=== PATIENT | female | born 1970 | race Caucasian/White ===

== ENCOUNTER 2017-11-27 10:28 | Emergency (ER) | payer SELFPAY ==
[~2017-11-27] VITALS: Ht 165.1 cm; Wt 80.0 kg
[2017-11-27 10:28] VITALS: BP 143/76; PULSE 91; RESP 18; TEMP 98.2; O2SAT 98
[~2017-11-27 10:28] MED LIST: PRED10PA2 PO; TRAM50TA PO
[2017-11-27 11:23] LABS: BILIRUBIN, URINE NEG (NEG); BLOOD, URINE NEG (NEG); GLUCOSE,URINE NEG (NEG); KETONE, URINE NEG (NEG); NITRITE,URINE NEG (NEG); PH, URINE 6.5 (5.0-8.5); SQUAMOUS EPITHELIAL CELL URINE 1 /hpf (0-5); URINE COLOR LIGHT-YELLOW (YELLW/STRAW); URINE LEUKOCYTE ESTERASE NEG (NEG)
[2017-11-27] MEDS ORDERED: SODIUM CHLOR 0.9% 1000 ML INJ 1,000 ML IV SCH (11:53)
[2017-11-27] MEDS ORDERED: KETOROLAC TROMETHAMINE 30 MG/ML (IVP) VIAL IVP ONE (12:00)
[2017-11-27] MEDS ORDERED: ONDANSETRON HCL 4 MG/2 ML VIAL IVP ONE (12:00)
[2017-11-27] MEDS ORDERED: SODIUM CHLORIDE 0.9% FLUSH 10 ML FLUSH IV FLUSH PRN (12:00)
[2017-11-27] MEDS ORDERED: MORPHINE SULFATE 4 MG/ML INJ IV PUSH ONE (12:00)
--- NOTE | 2017-11-27 12:00 | PD ---
HPI Chief Complaint: Flank/Kidney Pain Time Seen by Provider: 11:53 Travel History International Travel<30 days: No Contact w/Intl Traveler<30days: No Traveled to known affect area: No History of Present Illness HPI The patient is a 47-year-old female who presents to the emergency department for bilateral "kidney pain". The patient states the pain started approximately 2-3 days ago, is located in mid back, feels like "kidney pain", is associated with dysuria, frequency, urgency, decreased urinary output. The patient denies any visible hematuria or history nephrolithiasis. The patient's last menstrual cycle several months ago, she states she is currently going through pedal pulse, denies . She denies any nausea, vomiting, or abdominal pain. Symptoms are moderate without any alleviating or exacerbating factors. She does note recent URI-type symptoms. The patient does not have a primary physician. The pain is described as dull and achy and is not exacerbated by movement. The patient does have a history of previous tubal ligation. PFSH Past Medical History Anxiety: Yes Depression: Yes Diminished Hearing: No Immunizations Current: No Migraines: Yes Tubal Ligation: Yes Past Surgical History Narrative Surgical Tubal ligation Social History Alcohol Use: No Tobacco Use: Yes Substance Use: No Allergies-Medications (Allergen,Severity, Reaction): Coded Allergies: penicillin G (Unverified Allergy, Mild, Nausea/Vomiting, 11/27/17) Reported Meds & Prescriptions Reported Meds & Active Scripts Active Tramadol (Tramadol HCl) 50 Mg Tab 50 Mg PO Q6H PRN Prednisone (48) 10 mg tab Dose Pack (Prednisone) 10 Mg Dspk 10 Mg PO DIRECTED Review of Systems Except as stated in HPI: all other systems reviewed are Neg General / Constitutional: Positive: Fever (subjective) HENT: Positive: Congestion Cardiovascular: No: Chest Pain or Discomfort Respiratory: No: Shortness of Breath Gastrointestinal: Positive: Diarrhea, No: Nausea, Vomiting, Abdominal Pain Genitourinary: Positive: Urgency, Frequency, Dysuria, Flank Pain, No: Hematuria , Pelvic Pain, Discharge, Vaginal Bleeding Physical Exam Narrative GENERAL: Awake, alert, pleasant 47-year-old female who appears her stated age and is in no acute respiratory distress. She does appear in moderate discomfort. SKIN: Focused skin assessment warm/dry. HEAD: Atraumatic. Normocephalic. EYES: Pupils equal and round. No scleral icterus. No injection or drainage. ENT: No nasal bleeding or discharge. Mucous membranes pink and moist. NECK: Trachea midline. No JVD. CARDIOVASCULAR: Regular rate and rhythm. No murmur appreciated. RESPIRATORY: No accessory muscle use. Clear to auscultation. Breath sounds equal bilaterally. GASTROINTESTINAL: Abdomen soft, non-tender, nondistended. Negative Brantley's. Negative McBurney's. No suprapubic tenderness. No guarding or rigidity. Back: No CVA tenderness. MUSCULOSKELETAL: No obvious deformities. No clubbing. No cyanosis. No edema. NEUROLOGICAL: Awake and alert. No obvious cranial nerve deficits. Motor grossly within normal limits. Normal speech. PSYCHIATRIC: Appropriate mood and affect; insight and judgment normal. Data Data Last Documented VS Vital Signs Date Time Temp Pulse Resp B/P (MAP) Pulse Ox O2 Delivery O2 Flow Rate FiO2 11/27/17 12:21 14 96 Room Air 11/27/17 10:28 98.2 91 Orders Orders Urinalysis - C+S If Indicated (11/27/17 10:44) Ed Urine Pregnancytest Poc (11/27/17 10:51) Complete Blood Count With Diff (11/27/17 11:53) Comprehensive Metabolic Panel (11/27/17 11:53) Lactic Acid (11/27/17 11:53) Ct Abd/Pel W/O Iv Contrast (11/27/17 11:53) Iv Access Insert/Monitor (11/27/17 11:53) Ecg Monitoring (11/27/17 11:53) Oximetry (11/27/17 11:53) Morphine Inj (Morphine Inj) (11/27/17 12:00) Ondansetron Inj (Zofran Inj) (11/27/17 12:00) Sodium Chlor 0.9% 1000 Ml Inj (Ns 1000 M (11/27/17 11:53) Sodium Chloride 0.9% Flush (Ns Flush) (11/27/17 12:00) Ketorolac Inj (Toradol Inj) (11/27/17 12:00) Labs Laboratory Tests Test 11/27/17 11:11 11/27/17 12:10 Urine Color LIGHT-YELLOW Urine Turbidity CLEAR Urine pH 6.5 Urine Specific [place] 1.006 Urine Protein NEG mg/dL Urine Glucose (UA) NEG mg/dL Urine Ketones NEG mg/dL Urine Occult Blood NEG Urine Nitrite NEG Urine Bilirubin NEG Urine Urobilinogen LESS THAN 2.0 MG/DL Urine Leukocyte Esterase NEG Urine Squamous Epithelial Cells 1 /hpf Microscopic Urinalysis Comment CULT NOT INDICATED White Blood Count 4.7 TH/MM3 Red Blood Count 4.84 MIL/MM3 Hemoglobin 15.2 GM/DL Hematocrit 44.8 % Mean Corpuscular Volume 92.6 FL Mean Corpuscular Hemoglobin 31.4 PG Mean Corpuscular Hemoglobin Concent 33.9 % Red Cell Distribution Width 13.4 % Platelet Count 230 TH/MM3 Mean Platelet Volume 8.4 FL Neutrophils (%) (Auto) 46.0 % Lymphocytes (%) (Auto) 41.8 % Monocytes (%) (Auto) 10.6 % Eosinophils (%) (Auto) 0.7 % Basophils (%) (Auto) 0.9 % Neutrophils # (Auto) 2.2 TH/MM3 Lymphocytes # (Auto) 2.0 TH/MM3 Monocytes # (Auto) 0.5 TH/MM3 Eosinophils # (Auto) 0.0 TH/MM3 Basophils # (Auto) 0.0 TH/MM3 CBC Comment DIFF FINAL Differential Comment Blood Urea Nitrogen 10 MG/DL Creatinine 0.65 MG/DL Random Glucose 89 MG/DL Total Protein 7.9 GM/DL Albumin 4.3 GM/DL Calcium Level 9.0 MG/DL Alkaline Phosphatase 66 U/L Aspartate Amino Transf (AST/SGOT) 24 U/L Alanine Aminotransferase (ALT/SGPT) 27 U/L Total Bilirubin 0.4 MG/DL Sodium Level 138 MEQ/L Potassium Level 4.0 MEQ/L Chloride Level 101 MEQ/L Carbon Dioxide Level 27.9 MEQ/L Anion Gap 9 MEQ/L Estimat Glomerular Filtration Rate 97 ML/MIN Lactic Acid Level 0.8 mmol/L [facility] Medical Decision Making Medical Screen Exam Complete: Yes Emergency Medical Condition: Yes Medical Record Reviewed: Yes Interpretation(s) Laboratory Tests Test 11/27/17 11:11 11/27/17 12:10 Urine Color LIGHT-YELLOW Urine Turbidity CLEAR Urine pH 6.5 Urine Specific [place] 1.006 Urine Protein NEG mg/dL Urine Glucose (UA) NEG mg/dL Urine Ketones NEG mg/dL Urine Occult Blood NEG Urine Nitrite NEG Urine Bilirubin NEG Urine Urobilinogen LESS THAN 2.0 MG/DL Urine Leukocyte Esterase NEG Urine Squamous Epithelial Cells 1 /hpf Microscopic Urinalysis Comment CULT NOT INDICATED White Blood Count 4.7 TH/MM3 Red Blood Count 4.84 MIL/MM3 Hemoglobin 15.2 GM/DL Hematocrit 44.8 % Mean Corpuscular Volume 92.6 FL Mean Corpuscular Hemoglobin 31.4 PG Mean Corpuscular Hemoglobin Concent 33.9 % Red Cell Distribution Width 13.4 % Platelet Count 230 TH/MM3 Mean Platelet Volume 8.4 FL Neutrophils (%) (Auto) 46.0 % Lymphocytes (%) (Auto) 41.8 % Monocytes (%) (Auto) 10.6 % Eosinophils (%) (Auto) 0.7 % Basophils (%) (Auto) 0.9 % Neutrophils # (Auto) 2.2 TH/MM3 Lymphocytes # (Auto) 2.0 TH/MM3 Monocytes # (Auto) 0.5 TH/MM3 Eosinophils # (Auto) 0.0 TH/MM3 Basophils # (Auto) 0.0 TH/MM3 CBC Comment DIFF FINAL Differential Comment Blood Urea Nitrogen 10 MG/DL Creatinine 0.65 MG/DL Random Glucose 89 MG/DL Total Protein 7.9 GM/DL Albumin 4.3 GM/DL Calcium Level 9.0 MG/DL Alkaline Phosphatase 66 U/L Aspartate Amino Transf (AST/SGOT) 24 U/L Alanine Aminotransferase (ALT/SGPT) 27 U/L Total Bilirubin 0.4 MG/DL Sodium Level 138 MEQ/L Potassium Level 4.0 MEQ/L Chloride Level 101 MEQ/L Carbon Dioxide Level 27.9 MEQ/L Anion Gap 9 MEQ/L Estimat Glomerular Filtration Rate 97 ML/MIN Lactic Acid Level 0.8 mmol/L Differential Diagnosis Differential diagnosis includes UTI, pyelonephritis, nephrolithiasis, lower lobe pneumonia, pancreatitis, diverticulitis, viral syndrome. Narrative Course IV was established, labs are drawn and sent, and the patient was placed on cardiac telemetry monitoring and continuous pulse oximetry monitoring. UA was unremarkable, was negative. Bedside UA test was negative. Therefore , CT of the abdomen and pelvis without contrast was performed. The patient was administered morphine, Toradol, Zofran, and IV fluids. Labs are unremarkable. White count is normal. LFTs and lipase are normal. Lactic acid is within normal limits. CT is unremarkable except for a gallstone, however, patient has no postprandial pain and has a negative Brantley sign. The patient's bilateral mid back pain may be musculoskeletal in nature, there is no evidence of acute renal failure or nephrolithiasis. The patient was reevaluated at 1:20 PM, her symptoms had significantly improved. She will be referred to the local clinic. Diagnosis Primary Impression: Back pain Qualified Codes: M54.5 - Low back pain Referrals: [facility] Patient Instructions: General Instructions Additional Instructions: Please provide the patient a copy of her CT results and lab results at discharge. Medications as directed. No heavy lifting for 3 days. Return if symptoms worsen or progress. Med/Other Pt SpecificInfo: Prescription(s) given Scripts Hydrocodone-Acetaminophen ([place]) 5 Mg-325 Mg Tab 1 TAB PO Q6H Y for PAIN, #12 TAB 0 Refills Prov: Rafa Bloom MD 11/27/17 Cyclobenzaprine (Flexeril) 10 Mg Tab 10 MG PO TID for Muscle Spasm, #30 TAB 0 Refills Prov: Rafa Bloom MD 11/27/17 Ibuprofen (Ibuprofen) 600 Mg Tab 600 MG PO Q6H Y for Pain/Inflammation, #20 TAB 0 Refills Prov: Rafa Bloom MD 11/27/17 Disposition: 01 DISCHARGE HOME Condition: Stable Rafa Bloom MD Nov 27, 2017 12:00
[2017-11-27 12:21] VITALS: RESP 14; O2SAT 96
[2017-11-27 12:38] LABS: AUTOMATED NEUTROPHIL # 2.2 TH/MM3 (1.8-7.7); BASOPHIL % 0.9 % (0.0-2.0); EOSINOPHIL % 0.7 % (0.0-4.0); HEMATOCRIT 44.8 % (35.0-46.0); HEMOGLOBIN 15.2 GM/DL (11.6-15.3); LYMPH % 41.8 % (9.0-44.0); MEAN CELL VOLUME 92.6 FL (80.0-100.0); MEAN CORPUSCULAR HEMOGLOBIN 31.4 PG (27.0-34.0); MEAN CORPUSCULAR HGB CONC 33.9 % (32.0-36.0); MEAN PLATELET VOLUME 8.4 FL (7.0-11.0); MONO % 10.6 % (0.0-8.0); MONOCYTE # 0.5 TH/MM3 (0-0.9); PLATELET COUNT 230 TH/MM3 (150-450); RED BLOOD COUNT 4.84 MIL/MM3 (4.00-5.30); RED CELL DISTRIBUTION WIDTH 13.4 % (11.6-17.2); WHITE BLOOD COUNT 4.7 TH/MM3 (4.0-11.0)
[2017-11-27 12:57] LABS: ALBUMIN 4.3 GM/DL (3.4-5.0); AST (GOT) 24 U/L (15-37); BICARBONATE 27.9 MEQ/L (21.0-32.0); BLOOD UREA NITROGEN 10 MG/DL (7-18); CHLORIDE 101 MEQ/L (98-107); CREATININE 0.65 MG/DL (0.50-1.00); GLOMERULAR FILTRATION RATE 97 ML/MIN (>89); GLUCOSE,RANDOM 89 MG/DL (74-106); SODIUM (NA) 138 MEQ/L (136-145)
[2017-11-27 12:58] LABS: ALT (GPT) 27 U/L (10-53)
[2017-11-27 13:00] LABS: ALKALINE PHOSPHATASE 66 U/L (45-117); TOTAL BILIRUBIN ADULT 0.4 MG/DL (0.2-1.0); TOTAL PROTEIN 7.9 GM/DL (6.4-8.2)
--- NOTE | 2017-11-27 13:10 | RADRPT ---
EXAM DATE/TIME: 11/27/2017 12:42 [place] COMPARISON: No previous studies available for comparison. INDICATIONS : Left flank pain, difficulty urinating. ORAL CONTRAST: No oral contrast ingested. RADIATION DOSE: 20.59 CTDIvol (mGy) MEDICAL HISTORY : None SURGICAL HISTORY : Tubal ligation. ENCOUNTER: Initial ACUITY: 2 days PAIN SCALE: 6/10 LOCATION: Left flank TECHNIQUE: Volumetric scanning of the abdomen and pelvis was performed. Using automated exposure control and ad justment of the mA and/or kV according to patient size, radiation dose was kept as low as reasonably achievable to obtain optimal diagnostic quality images. DICOM format image data is available electro nically for review and comparison. FINDINGS: LOWER LUNGS: The visualized lower lungs are clear. LIVER: Homogeneous density without lesion except for a lobulated cyst in the right lobe. There is no dilati on of the biliary tree. A solitary rounded calcified gallstones. SPLEEN: Normal size without lesion. PANCREAS: Within normal limits. KIDNEYS: Normal in size and shape. There is no mass, stone, or hydronephrosis. ADRENAL GLANDS: Within normal limits. VASCULAR: There is no aortic aneurysm. BOWEL/MESENTERY: The stomach, small bowel, and colon demonstrate no acute abnormality. There is no free intraperitone al air or fluid. ABDOMINAL WALL: Within normal limits. RETROPERITONEUM: There is no lymphadenopathy. BLADDER: No wall thickening or mass. REPRODUCTIVE: Within normal limits. INGUINAL: There is no lymphadenopathy or hernia. MUSCULOSKELETAL: Within normal limits for patient age. CONCLUSION: Normal examination except for gallstone and hepatic cyst. Gilbert Gavin MD on November 27, 2017 at 13:06 Board Certified Radiologist. This report was verified electronically.
[2017-11-27] MEDS ORDERED: IBUP-232 PO (13:27)
[2017-11-27] MEDS ORDERED: CYCL10TA PO (13:27)
[2017-11-27] MEDS ORDERED: NORC5TAB PO (13:27)
== END 2017-11-27 14:00 | disposition home or self-care (01) ==
LOC: NEPD 10:28
DX: M54.5 Low back pain (principal); F41.9 Anxiety disorder, unspecified; F32.9 Major depressive disorder, single episode, unspecified
CPT/HCPCS: 74176; 80053; 81001; 83605; 84703; 85025; 96361; 96374; 96375; 99285; J1885; J2270; J2405; J7030

== ENCOUNTER 2018-05-12 10:04 | Emergency (ER) | payer SELFPAY ==
[~2018-05-12] VITALS: Ht 165.1 cm; Wt 90.0 kg
[~2018-05-12 10:04] MED LIST changes: +CYCL10TA PO; +IBUP-232 PO; +NORC5TAB PO
[2018-05-12 10:15] VITALS: BP 139/73; PULSE 66; RESP 16; TEMP 98.4; O2SAT 97
--- NOTE | 2018-05-12 13:17 | PD ---
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 Onset today while awaking. She describes it as sharp, located deep in the vagina. It lasted about 45 minutes before gradually subsiding. She denies associated nausea, vomiting, dysuria, hematuria, vaginal discharge, vaginal bleeding, constipation, diarrhea, melena, hematochezia. She denies foreign body or recent trauma. She states she has had 2 periods this year, suspects that she is going through menopause. She is unsure of the date of her last pelvic exam. She endorses distant history of tubal ligation. No treatment attempted before arrival. PFSH Past Medical History Anxiety: Yes Depression: Yes Diminished Hearing: No Immunizations Current: No Migraines: Yes ?: Not Tubal Ligation: Yes Social History Alcohol Use: Yes Tobacco Use: Yes Substance Use: No Allergies-Medications (Allergen,Severity, Reaction): Coded Allergies: penicillin G (Unverified Allergy, Mild, Nausea/Vomiting, 05/12/18) Reported Meds & Prescriptions Reported Meds & Active Scripts Active [place] (Hydrocodone-Acetaminophen) 5 Mg-325 Mg Tab 1 Tab PO Q6H PRN Flexeril (Cyclobenzaprine HCl) 10 Mg Tab 10 Mg PO TID Ibuprofen 600 Mg Tab 600 Mg PO Q6H PRN Tramadol (Tramadol HCl) 50 Mg Tab 50 Mg PO Q6H PRN Prednisone (48) 10 mg tab Dose Pack (Prednisone) 10 Mg Dspk 10 Mg PO DIRECTED Review of Systems Except as stated in HPI: all other systems reviewed are Neg Physical Exam Narrative GENERAL: Well-nourished, well-developed nontoxic-appearing white female no acute distress per. SKIN: Focused skin assessment warm/dry. HEAD: Normocephalic. EYES: No scleral icterus. No injection or drainage. NECK: Supple, trachea midline. No JVD or lymphadenopathy. CARDIOVASCULAR: Regular rate and rhythm without murmurs, gallops, or rubs. RESPIRATORY: Breath sounds equal bilaterally. No accessory muscle use. GASTROINTESTINAL: Abdomen soft, non-tender, nondistended. No suprapubic tenderness. Active bowel sounds. GENITOURINARY: Normal external genitalia without lesions or erythema. Vaginal vault without blood. Moderate amount of thick white drainage in the vault. Cervical os was closed without drainage. No cervical motion tenderness. Uterus nontender and nonenlarged. Bilateral adnexa nontender without masses. MUSCULOSKELETAL: No cyanosis, or edema. BACK: Nontender without obvious deformity. No CVA tenderness. Data Data Last Documented VS Vital Signs Date Time Temp Pulse Resp B/P (MAP) Pulse Ox O2 Delivery O2 Flow Rate FiO2 05/12/18 16:57 62 16 125/65 (85) 97 Room Air 05/12/18 10:15 98.4 Orders Orders Urinalysis - C+S If Indicated (05/12/18 13:13) Ed Urine Pregnancytest Poc (05/12/18 13:13) Gc And Chlamydia Pcr (05/12/18 15:19) Wet Prep Profile (05/12/18 15:19) Ed Discharge Order (05/12/18 16:26) Labs Laboratory Tests Test 05/12/18 13:20 05/12/18 15:30 Urine Color Straw Urine Turbidity CLEAR Urine pH 6.0 Urine Specific [place] 1.009 Urine Protein NEG mg/dL Urine Glucose (UA) NEG mg/dL Urine Ketones NEG mg/dL Urine Occult Blood SMALL Urine Nitrite NEG Urine Bilirubin NEG Urine Urobilinogen LESS THAN 2 mg/dL Urine Leukocyte Esterase NEG Urine RBC LESS THAN 1 /hpf Urine WBC LESS THAN 1 /hpf Urine Squamous Epithelial Cells <1 /hpf Microscopic Urinalysis Comment CULT NOT INDICATED Clue Cells (Wet Prep) NONE SEEN Vaginal Trichomonas (Wet Prep) NONE SEEN Vaginal Yeast (Wet Prep) NONE SEEN MDM Medical Decision Making Medical Screen Exam Complete: Yes Emergency Medical Condition: Yes Differential Diagnosis UTI versus versus dysmenorrhea versus STD versus other Narrative Course 48-year-old female presents the ED for evaluation of sudden onset lower abdominal/pelvic pain. Onset today while awaking. She describes it as sharp, located deep in the vagina. It lasted about 45 minutes before gradually subsiding. She denies associated nausea, vomiting, dysuria, hematuria, vaginal discharge, vaginal bleeding, constipation, diarrhea, melena, hematochezia, foreign body or recent trauma. She states she has had 2 periods this year, suspects that she is going through menopause. She is unsure of the date of her last pelvic exam. She endorses distant history of tubal ligation. Vitals reviewed. On exam patient is nontoxic-appearing. Her pain is now resolved. I am unable to elicit any pain with deep palpation of the abdomen. Pelvic exam reveals small amount of thin pale discharge in the vaginal vault, otherwise unremarkable. Wet prep negative. No culture indicated of the UA. GC chlamydia pending. Patient states she is low risk for GC chlamydia, single male partner for many years. I discussed the results of the workup with the patient. As a states she is well appearing and I think she could follow up with a notch machine operator for further evaluation. Patient's agreeable with this plan. She is instructed to return to normal, gentle activity as tolerated, follow-up as discussed, return for worsening symptoms. She indicated understanding of the instructions and is agreeable to care plan. The patient is stable and discharged home. 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 Return to normal, gentle activity as tolerated. Follow with the notch machine operator as discussed. Return to the ED for worsening symptoms or any urgent or emergent medical condition. Disposition: 01 DISCHARGE HOME Condition: Stable Taryn Hernandez May 12, 2018 13:17
[2018-05-12 13:58] LABS: BILIRUBIN, URINE NEG (NEG); BLOOD, URINE SMALL (NEG); GLUCOSE,URINE NEG (NEG); KETONE, URINE NEG (NEG); NITRITE,URINE NEG (NEG); SQUAMOUS EPITHELIAL CELL URINE <1 /hpf (0-5); URINE COLOR Straw (YELLW/STRAW); URINE LEUKOCYTE ESTERASE NEG (NEG)
[2018-05-12 16:57] VITALS: BP 125/65; PULSE 62; RESP 16; O2SAT 97
== END 2018-05-12 16:59 | disposition home or self-care (01) ==
LOC: NEPD 10:04
DX: R10.2 Pelvic and perineal pain (principal); N89.8 Other specified noninflammatory disorders of vagina; F32.9 Major depressive disorder, single episode, unspecified; F41.9 Anxiety disorder, unspecified; Z72.0 Tobacco use; Z98.51 Tubal ligation status; Z88.0 Allergy status to penicillin; Z79.899 Other long term (current) drug therapy
CPT/HCPCS: 81001; 84703; 87210; 87491; 87591; 99283